=== PATIENT | male | born 1965 | race Caucasian/White ===

== ENCOUNTER 2018-02-23 03:21 | Inpatient (IN) | payer OTHER ==
[2018-02-23] VITALS (13 sets, daily range): BP systolic 105–141; BP diastolic 55–64; PULSE 70–129; RESP 17–22; TEMP 95.9–100.8; O2SAT 86–100
[2018-02-23] MEDS ORDERED: ceFAZolin 2 GM PREMIX 50 ML ONE (03:33)
[2018-02-23] MEDS ORDERED: DIPHTH/TETANUS/ACEL PERTUSSIS (BOOSTER) 0.5 ML VIAL/PFS IM ONE (03:33)
[2018-02-23] MEDS ORDERED: ATROPINE SULFATE 1 MG/ML VIAL ONE (03:37)
[2018-02-23 03:43] LABS: BASOPHIL # 0.1 TH/MM3 (0-0.2); BASOPHIL % 0.6 % (0.0-2.0); EOSINOPHIL # 0.2 TH/MM3 (0-0.4); HEMATOCRIT 45.5 % (39.0-51.0); HEMOGLOBIN 15.3 GM/DL (13.0-17.0); LYMPH % 34.3 % (9.0-44.0); LYMPHOCYTE # 3.5 TH/MM3 (1.0-4.8); MEAN CELL VOLUME 93.1 FL (80.0-100.0); MEAN CORPUSCULAR HEMOGLOBIN 31.3 PG (27.0-34.0); MEAN CORPUSCULAR HGB CONC 33.6 % (32.0-36.0); MEAN PLATELET VOLUME 8.2 FL (7.0-11.0); MONO % 5.4 % (0.0-8.0); MONOCYTE # 0.6 TH/MM3 (0-0.9); NEUT % 57.7 % (16.0-70.0); PLATELET COUNT 216 TH/MM3 (150-450); RED BLOOD COUNT 4.89 MIL/MM3 (4.50-5.90); WHITE BLOOD COUNT 10.3 TH/MM3 (4.0-11.0)
[2018-02-23] MEDS: LACTATED RINGER'S 1000 ML INJ 1,000 ML IV SCH ×3 (03:44→19:44)
[2018-02-23] MEDS ORDERED: CHLORHEXIDINE GLUCONATE 2 % 1 PACK (2 CLOTHS) TOP PRN (03:45)
[2018-02-23] MEDS ORDERED: MAGNESIUM HYDROXIDE SUSP 30 ML CUP PO PRN (03:45)
[2018-02-23] MEDS ORDERED: ONDANSETRON HCL 4 MG/2 ML VIAL IV PUSH PRN (03:45)
[2018-02-23] MEDS ORDERED: NURSING INFORMATION XX SCH (03:45)
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
[2018-02-23 03:52] LABS: PROTHROMBIN TIME - PATIENT 40.6 SEC (9.8-11.6)
[2018-02-23] MEDS ORDERED: IOHEXOL 350 MG/ML 10 ML VIAL (for RAD DIAG) IVCONTRAST ONE (03:55)
[2018-02-23] MEDS: CHLORHEXIDINE GLUCONATE 2 % 1 PACK (2 CLOTHS) TOP SCH (04:00)
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
[2018-02-23 04:33] LABS: TROPONIN I LESS THAN 0.02 NG/ML (0.02-0.05)
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
[2018-02-23] MEDS ORDERED: LACTATED RINGER'S 1000 ML INJ 1,000 ML IV ONE (05:30)
[2018-02-23] MEDS: IBUPROFEN 800 MG TAB PO SCH ×3 (06:00→18:00)
[2018-02-23] MEDS ORDERED: LACTULOSE SYRUP 20 GM/30 ML CUP PO PRN (06:15)
[2018-02-23] MEDS: RESP: ALBUTEROL 2.5 MG/IPRATROPIUM 0.5 MG NEB (SCH) NEB ×4 (07:41→19:46)
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
[2018-02-23] MEDS: POLYETHYLENE GLYCOL 17 GM PKG PO SCH (09:00)
[2018-02-23] MEDS ORDERED: DOCUSATE SODIUM 100 MG CAP PO SCH (09:00)
[2018-02-23] MEDS: FAMOTIDINE 20 MG/2 ML VIAL IV PUSH SCH ×2 (10:02→20:48)
[2018-02-23] MEDS: DOCUSATE SODIUM 50 MG/SENNA 8.6 MG TAB PO SCH ×2 (10:03→20:48)
[2018-02-23] MEDS: BACITRACIN TOP OINT 15 GM TUBE TOP SCH ×2 (10:05→20:49)
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
[2018-02-23] MEDS ORDERED: hydrALAZINE HCL 20 MG/ML VIAL IV PRN (19:30)
[2018-02-23] MEDS ORDERED: ACETAMINOPHEN 325 MG TAB PO PRN (19:30)
[2018-02-24] VITALS (14 sets, daily range): BP systolic 115–153; BP diastolic 63–87; PULSE 98–121; RESP 14–25; TEMP 98.4–100.6; O2SAT 93–98
[2018-02-24] MEDS: LACTATED RINGER'S 1000 ML INJ 1,000 ML IV SCH (03:44)
[2018-02-24] MEDS: CHLORHEXIDINE GLUCONATE 2 % 1 PACK (2 CLOTHS) TOP SCH (04:00)
[2018-02-24 04:40] LABS: AUTOMATED NEUTROPHIL # 9.5 TH/MM3 (1.8-7.7); BASOPHIL % 0.2 % (0.0-2.0); HEMATOCRIT 47.9 % (39.0-51.0); HEMOGLOBIN 16.1 GM/DL (13.0-17.0); LYMPH % 5.1 % (9.0-44.0); LYMPHOCYTE # 0.6 TH/MM3 (1.0-4.8); MEAN CELL VOLUME 91.5 FL (80.0-100.0); MEAN CORPUSCULAR HEMOGLOBIN 30.7 PG (27.0-34.0); MEAN CORPUSCULAR HGB CONC 33.6 % (32.0-36.0); MONOCYTE # 1.2 TH/MM3 (0-0.9); NEUT % 83.7 % (16.0-70.0); PLATELET COUNT 173 TH/MM3 (150-450); RED BLOOD COUNT 5.24 MIL/MM3 (4.50-5.90); RED CELL DISTRIBUTION WIDTH 15.1 % (11.6-17.2); WHITE BLOOD COUNT 11.3 TH/MM3 (4.0-11.0)
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
[2018-02-24 05:10] LABS: BICARBONATE 18.3 MEQ/L (21.0-32.0); CALCIUM 8.3 MG/DL (8.5-10.1); CREATININE 1.31 MG/DL (0.60-1.30)
[2018-02-24] MEDS: IBUPROFEN 800 MG TAB PO SCH ×4 (06:00→17:37)
[2018-02-24] MEDS ORDERED: ONDANSETRON ODT 4 MG TAB PO PRN (07:30)
[2018-02-24] MEDS: RESP: ALBUTEROL 2.5 MG/IPRATROPIUM 0.5 MG NEB (SCH) NEB ×4 (07:30→20:00)
[2018-02-24] MEDS: METHOCARBAMOL 500 MG TAB PO SCH ×2 (08:03→17:37)
[2018-02-24] MEDS: SODIUM CHLORIDE 0.9% FLUSH 10 ML FLUSH IV FLUSH PRN (08:03)
[2018-02-24] MEDS: DOCUSATE SODIUM 50 MG/SENNA 8.6 MG TAB PO SCH ×2 (08:03→20:38)
[2018-02-24] MEDS: LIDOCAINE HCL 5% PATCH T-DERMAL SCH (08:04)
[2018-02-24] MEDS: BACITRACIN TOP OINT 15 GM TUBE TOP SCH ×2 (08:04→20:38)
[2018-02-24 08:17] LABS: BANDS 21 % (0-6); LYMPHOCYTES 7 % (9-44); MONOCYTES 9 % (0-8); NEUTROPHIL # MANUAL DIFF 9.5 TH/MM3 (1.8-7.7); POLYS (SEG NEUTROPHILS) 63 % (16-70)
[2018-02-24] MEDS: MORPHINE SULFATE 4 MG/ML INJ IV PUSH PRN ×2 (08:28→15:40)
[2018-02-24] MEDS ORDERED: LACTATED RINGER'S 1000 ML INJ 1,000 ML IV ONE ×2 (09:15→16:00)
--- NOTE | 2018-02-24 09:57 | PD.ORT.PN ---
Subjective Subjective Remarks Patient resting in bed with continued complaints of generalized soreness. Patient states the left shoulder is more bothersome than is right today. Patient states mild right shoulder/clavicle pain. Left shoulder pain is sharp with movement. Objective Vitals Vital Signs Date Time Temp Pulse Resp B/P (MAP) Pulse Ox O2 Delivery O2 Flow Rate FiO2 02/24/18 07:34 97 Nasal Cannula 3.00 02/24/18 06:39 17 02/24/18 06:00 108 02/24/18 04:00 111 02/24/18 04:00 99.8 111 18 126/71 (89) 98 02/24/18 02:00 110 02/24/18 00:00 115 02/24/18 00:00 99.9 115 18 115/70 (85) 95 02/23/18 22:00 117 02/23/18 20:00 129 02/23/18 20:00 98.6 129 17 134/64 (87) 97 02/23/18 19:46 98 Nasal Cannula 2.00 02/23/18 19:00 Nasal Cannula 2.00 02/23/18 18:00 110 02/23/18 16:00 111 02/23/18 16:00 100.8 111 18 141/63 (89) 100 02/23/18 14:00 100 02/23/18 12:00 99.9 78 22 133/63 (86) 100 02/23/18 12:00 78 02/23/18 10:00 75 I/O 02/23/18 02/23/18 02/23/18 02/24/18 02/24/18 02/24/18 06:59 14:59 22:59 06:59 14:59 22:59 Intake Total 1240 ml 1250 ml Output Total 350 ml 475 ml 350 ml Balance -350 ml 765 ml 900 ml Intake Oral 240 ml 250 ml IV Total 1000 ml 1000 ml Output Urine Total 350 ml 475 ml 350 ml # Bowel Movements 0 Result Diagram: 02/24/18 0249 02/24/18 0249 Imaging Last 24 hours Impressions Chest X-Ray 02/24/18 0000 Addendum Impressions: CONCLUSION: Bibasilar areas of suspected contusion with possible left pleural effusion. Multiple bilateral rib fractures. Head CT 02/23/18 1600 Signed Impressions: CONCLUSION: 1. No acute intracranial abnormality. Objective Remarks Multiple abrasions covering the upper extremities, lower extremities, and torso. Patient has mild swelling and tenderness to palpation of the right shoulder and clavicle. Patient has moderate tenderness to palpation over the superior and anterior aspects of the left shoulder. Patient had moderate to severe pain with PROM of the left shoulder. + NVI bilateral upper extremities. Compartments are soft. Patient has limited AROM of the left hand from prior/ chronic nerve damage. Assessment & Plan Assessment and Plan Right distal clavicle fracture with mild displacement and comminution Multiple bilateral rib fractures Left shoulder pain, r/o fracture 1. Sling to the right upper extremity for comfort and support 2. Ice to the bilateral shoulders PRN 3. AROM bilateral shoulders as tolerated 4. XR ordered for left shoulder to r/o fracture, will f/u 5. Stable fracture of right clavicle, not recommending surgical management at this time. Jay Bell Feb 24, 2018 09:57
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
[2018-02-24] MEDS: POLYETHYLENE GLYCOL 17 GM PKG PO SCH (12:59)
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
--- NOTE | 2018-02-24 15:42 | EKG ---
Date Performed: 02/24/2018 Time Performed: 08:02:48 PTAGE: 52 years EKG: Sinus tachycardia Possible left atrial abnormality Rightward axis Inferior T wave changes a re nonspecific Borderline ECG NO PREVIOUS TRACING DOCTOR: Juan Broyd Interpretating Date/Time 02/24/2018 15:41:44
[2018-02-24] MEDS: SODIUM CHLOR 0.9% 1000 ML INJ 1,000 ML IV SCH (17:37)
[2018-02-24] MEDS ORDERED: LORazepam 1 MG TAB PO ONE (18:30)
[2018-02-24 18:49] LABS: BACTERIA, URINE FEW /hpf; BILIRUBIN, URINE NEG (NEG); BLOOD, URINE LARGE (NEG); GLUCOSE,URINE NEG (NEG); HYALINE CAST, URINE 10 /lpf (RARE); KETONE, URINE TRACE mg/dL (NEG); MUCUS URINE FEW /lpf (OCC); NITRITE,URINE NEG (NEG); RENAL EPITHELIAL CELLS <1 /hpf; SQUAMOUS EPITHELIAL CELL URINE 2 /hpf (0-5); TRANSITIONAL EPI CELLS, URINE <1 /hpf; URINE COLOR YELLOW (YELLW/STRAW); URINE LEUKOCYTE ESTERASE SMALL (NEG)
[2018-02-24] MEDS: REMOVE OLD LIDOCAINE PATCH T-DERMAL SCH (21:00)
[2018-02-25] VITALS (15 sets, daily range): BP systolic 117–181; BP diastolic 57–95; PULSE 90–118; RESP 12–24; TEMP 97.8–99.3; O2SAT 93–100
[2018-02-25] MEDS: METHOCARBAMOL 500 MG TAB PO SCH ×4 (00:44→23:16)
[2018-02-25] MEDS: IBUPROFEN 800 MG TAB PO SCH ×5 (00:45→23:16)
[2018-02-25] MEDS: CHLORHEXIDINE GLUCONATE 2 % 1 PACK (2 CLOTHS) TOP SCH (02:33)
[2018-02-25] MEDS: SODIUM CHLOR 0.9% 1000 ML INJ 1,000 ML IV SCH ×3 (02:51→23:10)
[2018-02-25 05:19] LABS: PROTHROMBIN TIME - PATIENT 67.1 SEC (9.8-11.6)
[2018-02-25 05:24] LABS: INTERNATIONAL NORMALIZED RATIO 6.7 RATIO
[2018-02-25 05:44] LABS: TROPONIN I 0.26 NG/ML (0.02-0.05)
[2018-02-25] MEDS: RESP: ALBUTEROL 2.5 MG/IPRATROPIUM 0.5 MG NEB (SCH) NEB ×4 (08:31→20:16)
[2018-02-25] MEDS: POLYETHYLENE GLYCOL 17 GM PKG PO SCH (09:00)
[2018-02-25] MEDS: DOCUSATE SODIUM 50 MG/SENNA 8.6 MG TAB PO SCH ×2 (09:17→21:29)
[2018-02-25] MEDS: LIDOCAINE HCL 5% PATCH T-DERMAL SCH (09:21)
[2018-02-25] MEDS: BACITRACIN TOP OINT 15 GM TUBE TOP SCH ×2 (09:21→21:37)
[2018-02-25] MEDS: MORPHINE SULFATE 4 MG/ML INJ IV PUSH PRN ×2 (09:30→16:23)
--- NOTE | 2018-02-25 12:59 | PD.ORT.PN ---
Subjective Subjective Remarks Patient OOB in chair c/o generalized soreness/pain. Patient is currently wearing a sling to the left upper extremity as this is more painful than his previously diagnosed right clavicle fracture. Objective Vitals Vital Signs Date Time Temp Pulse Resp B/P (MAP) Pulse Ox O2 Delivery O2 Flow Rate FiO2 02/25/18 10:00 97 02/25/18 08:39 100 Nasal Cannula 3.00 02/25/18 08:00 90 02/25/18 08:00 98.5 90 24 117/57 (77) 93 02/25/18 07:00 99 Nasal Cannula 3.00 02/25/18 06:00 90 02/25/18 04:00 98.5 105 14 131/63 (85) 97 02/25/18 04:00 105 02/25/18 02:00 102 02/25/18 00:00 99.3 106 12 126/59 (81) 96 02/25/18 00:00 106 02/24/18 22:00 110 02/24/18 20:43 93 Nasal Cannula 2.00 02/24/18 20:00 98 02/24/18 20:00 99.2 98 14 133/63 (86) 96 02/24/18 19:00 90 Nasal Cannula 3.00 02/24/18 18:00 104 02/24/18 16:00 99.7 108 24 153/70 (97) 96 02/24/18 16:00 108 02/24/18 14:00 108 I/O 02/24/18 02/24/18 02/24/18 02/25/18 02/25/18 02/25/18 07:00 15:00 23:00 07:00 15:00 23:00 Intake Total 1250 ml 1000 ml 2480 ml 5907 ml Output Total 350 ml 275 ml 350 ml Balance 900 ml 1000 ml 2205 ml 5557 ml Intake Oral 250 ml 480 ml 600 ml IV Total 1000 ml 1000 ml 2000 ml 5307 ml Output Urine Total 350 ml 275 ml 350 ml # Bowel Movements 0 0 0 Result Diagram: 02/24/18 0249 02/24/189 Other Results Laboratory Tests Test 02/25/18 04:56 Prothromb Time International Ratio 6.7 RATIO Prothrombin Time 67.1 SEC (9.8-11.6) Imaging Last 48 hours Impressions Shoulder X-Ray 02/24/18 0000 Signed Impressions: CONCLUSION: Fracture of the distal clavicle, nondisplaced just proximal to the AC joint. Mu ltiple minimally displaced left-sided rib fractures with adjacent pulmonary con tusion. Chest X-Ray 02/24/18 0000 Addendum Impressions: CONCLUSION: Bibasilar areas of suspected contusion with possible left pleural effusion. Multiple bilateral rib fractures. Head CT 02/23/18 1600 Signed Impressions: CONCLUSION: 1. No acute intracranial abnormality. Last 24 hours Impressions Chest X-Ray 02/24/18 0000 Addendum Impressions: CONCLUSION: Bibasilar areas of suspected contusion with possible left pleural effusion. Multiple bilateral rib fractures. Head CT 02/23/18 1600 Signed Impressions: CONCLUSION: 1. No acute intracranial abnormality. I have reviewed the images of the left shoulder and agree with the radiologist' s interpretation. Objective Remarks Multiple abrasions covering the upper extremities, lower extremities, and torso. Patient has mild swelling and tenderness to palpation of the right shoulder and clavicle. Patient has moderate tenderness to palpation over the superior and anterior aspects of the left shoulder. Patient had moderate to severe pain with PROM/AROM of the left shoulder. + NVI bilateral upper extremities. Compartments are soft. 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 Sling to the LUE Assessment & Plan Ortho Post Op Day #: 2 Problem List: Assessment and Plan Right distal clavicle fracture with mild displacement and comminution Multiple bilateral rib fractures Left shoulder nondisplaced distal clavicle fracture 1. Sling to the bilateral upper extremities for comfort and support. Sling order placed for RUE as patient is currently wearing sling on LUE 2. Ice to the bilateral shoulders PRN 3. AROM bilateral shoulders as tolerated. Limit WB 4. XR of left shoulder confirms distal clavicle fracture. Non operative management of the clavicle fracture. 5. Stable fracture of right clavicle, not recommending surgical management at this time. 6. Stable for discharge per ortho. F/U in the office in 1-2 weeks for close f/ u of the bilateral clavicle fractures. Ortho signing off Jay Bell Feb 25, 2018 12:59
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
[2018-02-25] MEDS: SODIUM CHLORIDE 0.9% FLUSH 10 ML FLUSH IV FLUSH PRN (21:28)
[2018-02-25] MEDS: REMOVE OLD LIDOCAINE PATCH T-DERMAL SCH (21:36)
[2018-02-26] VITALS (8 sets, daily range): BP systolic 132–167; BP diastolic 67–78; PULSE 98–116; RESP 18–20; TEMP 97.1–98.2; O2SAT 92–100
[2018-02-26] MEDS: CHLORHEXIDINE GLUCONATE 2 % 1 PACK (2 CLOTHS) TOP SCH (04:00)
[2018-02-26 05:31] LABS: INTERNATIONAL NORMALIZED RATIO 2.9 RATIO; PROTHROMBIN TIME - PATIENT 29.4 SEC (9.8-11.6)
[2018-02-26 05:35] LABS: AUTOMATED NEUTROPHIL # 6.5 TH/MM3 (1.8-7.7); BASOPHIL % 0.4 % (0.0-2.0); EOSINOPHIL # 0.1 TH/MM3 (0-0.4); EOSINOPHIL % 1.6 % (0.0-4.0); HEMOGLOBIN 10.6 GM/DL (13.0-17.0); LYMPH % 9.7 % (9.0-44.0); LYMPHOCYTE # 0.8 TH/MM3 (1.0-4.8); MEAN CELL VOLUME 92.2 FL (80.0-100.0); MEAN CORPUSCULAR HEMOGLOBIN 31.4 PG (27.0-34.0); MEAN PLATELET VOLUME 8.8 FL (7.0-11.0); MONO % 6.3 % (0.0-8.0); MONOCYTE # 0.5 TH/MM3 (0-0.9); PLATELET COUNT 154 TH/MM3 (150-450); RED BLOOD COUNT 3.36 MIL/MM3 (4.50-5.90); RED CELL DISTRIBUTION WIDTH 14.9 % (11.6-17.2); WHITE BLOOD COUNT 7.9 TH/MM3 (4.0-11.0)
[2018-02-26 05:55] LABS: CALCIUM 8.2 MG/DL (8.5-10.1); CREATININE 1.31 MG/DL (0.60-1.30)
[2018-02-26] MEDS: SODIUM CHLOR 0.9% 1000 ML INJ 1,000 ML IV SCH ×3 (06:20→23:57)
[2018-02-26] MEDS: IBUPROFEN 800 MG TAB PO SCH ×4 (06:21→23:57)
[2018-02-26] MEDS: RESP: ALBUTEROL 2.5 MG/IPRATROPIUM 0.5 MG NEB (SCH) NEB ×4 (07:32→20:00)
--- NOTE | 2018-02-26 08:03 | RADRPT ---
EXAM DATE: 02/26/2018 7:58 AM EDT AGE/SEX: 52 years / Male INDICATIONS: Upper and left sided chest pain. CLINICAL DATA: This is the patient's subsequent encounter. Patient reports that signs and symptoms h ave been present for 4 - 6 days and indicates a pain score of 10/10. MEDICAL/SURGICAL HISTORY: None. None. COMPARISON: [facility] [place], CHEST SINGLE AP, 02/24/2018. . FINDINGS: Bilateral rib fractures are again noted with right greater than left basilar consolidation and small effusions. The right base consolidation is worse in the interim. I don't see a pneumothorax. Heart size stable, within normal limits. CONCLUSION: 1. Bibasilar consolidation and small effusions, worse on the right and not significantly changed on the left. 2. Bilateral rib fractures are again noted. No evidence of pneumothorax. Electronically signed by: Coleman Fabian MD 02/26/2018 8:01 AM EDT
[2018-02-26] MEDS: METHOCARBAMOL 500 MG TAB PO SCH ×3 (08:08→23:57)
[2018-02-26] MEDS: DOCUSATE SODIUM 50 MG/SENNA 8.6 MG TAB PO SCH ×2 (08:08→21:00)
[2018-02-26] MEDS: POLYETHYLENE GLYCOL 17 GM PKG PO SCH (08:08)
[2018-02-26] MEDS: LIDOCAINE HCL 5% PATCH T-DERMAL SCH (08:09)
[2018-02-26] MEDS: BACITRACIN TOP OINT 15 GM TUBE TOP SCH ×2 (08:09→22:20)
[2018-02-26] MEDS ORDERED: LACTULOSE SYRUP 20 GM/30 ML CUP PO ONE (12:30)
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
[2018-02-26] MEDS: REMOVE OLD LIDOCAINE PATCH T-DERMAL SCH (22:19)
[2018-02-27] VITALS (7 sets, daily range): BP systolic 130–184; BP diastolic 67–85; PULSE 99–111; RESP 16–18; TEMP 97.7–98.5; O2SAT 92–98
[2018-02-27] MEDS ORDERED: ENOXAPARIN SODIUM 100 MG/ML SYRINGE SQ SCH (03:00)
[2018-02-27] MEDS: CHLORHEXIDINE GLUCONATE 2 % 1 PACK (2 CLOTHS) TOP SCH (04:00)
[2018-02-27 06:08] LABS: HEMATOCRIT 30.2 % (39.0-51.0); HEMOGLOBIN 10.3 GM/DL (13.0-17.0)
[2018-02-27] MEDS: IBUPROFEN 800 MG TAB PO SCH ×4 (06:15→23:15)
[2018-02-27 06:37] LABS: BICARBONATE 20.6 MEQ/L (21.0-32.0); CREATININE 1.07 MG/DL (0.60-1.30)
[2018-02-27] MEDS ORDERED: PERI PO (06:55)
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
--- NOTE | 2018-02-27 07:32 | RADRPT ---
EXAM DATE: 02/27/2018 7:27 AM EDT AGE/SEX: 52 years / Male INDICATIONS: Short of breath. CLINICAL DATA: This is the patient's subsequent encounter. Patient reports that signs and symptoms h ave been present for 4 - 6 days and indicates a pain score of Nonresponsive. MEDICAL/SURGICAL HISTORY: None. None. [place] [facility] [place]. . FINDINGS: Parenchymal consolidation and small effusions again seen in both bases, slightly improved on the righ t and not significantly changed on the left. Bilateral rib fractures are again noted. No perceptible pneumothorax on either side. Heart size stable, within normal limits. CONCLUSION: 1. Slightly improved consolidation and small effusion at the right base. 2. No significant change consolidation and small effusion at the left base. 3. Bilateral rib fractures are again noted. Also a fracture distally of the right clavicle. No pneum othorax. Electronically signed by: Coleman Fabian MD 02/27/2018 7:30 AM EDT
[2018-02-27] MEDS: POLYETHYLENE GLYCOL 17 GM PKG PO SCH (08:29)
[2018-02-27] MEDS: METHOCARBAMOL 500 MG TAB PO SCH ×2 (08:29→15:39)
[2018-02-27] MEDS: DOCUSATE SODIUM 50 MG/SENNA 8.6 MG TAB PO SCH ×2 (08:30→21:00)
[2018-02-27] MEDS: LIDOCAINE HCL 5% PATCH T-DERMAL SCH (08:30)
[2018-02-27] MEDS: BACITRACIN TOP OINT 15 GM TUBE TOP SCH ×2 (08:30→21:00)
[2018-02-27 10:52] LABS: INTERNATIONAL NORMALIZED RATIO 1.7 RATIO; PROTHROMBIN TIME - PATIENT 17.6 SEC (9.8-11.6)
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
[2018-02-27] MEDS: SODIUM CHLOR 0.9% 1000 ML INJ 1,000 ML IV SCH (12:14)
[2018-02-27] MEDS ORDERED: BISACODYL EC 5 MG TABEC PO ONE (13:15)
[2018-02-27] MEDS ORDERED: BISACODYL 10 MG SUPP RECTAL ONE (13:15)
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
[2018-02-27] MEDS ORDERED: ENOXAPARIN SODIUM 100 MG/ML SYRINGE SQ ONE (15:15)
[2018-02-27] MEDS ORDERED: WARF-23 PO (16:45)
[2018-02-27] MEDS: ENALAPRILAT 1.25 MG/ML VIAL IV PUSH PRN (17:09)
[2018-02-27] MEDS: MAGNESIUM HYDROXIDE SUSP 30 ML CUP PO SCH (21:00)
[2018-02-27] MEDS: FAMOTIDINE 20 MG TAB PO SCH (23:02)
[2018-02-27] MEDS: REMOVE OLD LIDOCAINE PATCH T-DERMAL SCH (23:04)
[2018-02-28] VITALS: BP 164/70; PULSE 108; RESP 18; TEMP 98.8; O2SAT 96
[2018-02-28] MEDS: ENOXAPARIN SODIUM 100 MG/ML SYRINGE SQ SCH ×2 (02:22→17:55)
[2018-02-28] MEDS: MORPHINE SULFATE 4 MG/ML INJ IV PUSH PRN (02:23)
[2018-02-28 04:00] VITALS: BP 170/74; PULSE 97; RESP 18; TEMP 97.1; O2SAT 98
[2018-02-28 05:25] LABS: HEMATOCRIT 29.4 % (39.0-51.0); MEAN CORPUSCULAR HEMOGLOBIN 31.3 PG (27.0-34.0); MEAN PLATELET VOLUME 7.4 FL (7.0-11.0); PLATELET COUNT 234 TH/MM3 (150-450); RED BLOOD COUNT 3.19 MIL/MM3 (4.50-5.90); RED CELL DISTRIBUTION WIDTH 14.5 % (11.6-17.2); WHITE BLOOD COUNT 7.5 TH/MM3 (4.0-11.0)
[2018-02-28] MEDS: IBUPROFEN 800 MG TAB PO SCH ×4 (05:26→19:32)
[2018-02-28 05:33] LABS: INTERNATIONAL NORMALIZED RATIO 1.6 RATIO; PROTHROMBIN TIME - PATIENT 15.9 SEC (9.8-11.6)
[2018-02-28 08:05] VITALS: BP 146/78; PULSE 100; RESP 18; TEMP 97.5; O2SAT 97
[2018-02-28] MEDS: METHOCARBAMOL 500 MG TAB PO SCH ×3 (08:39→15:54)
[2018-02-28] MEDS: FAMOTIDINE 20 MG TAB PO SCH ×2 (08:39→22:22)
[2018-02-28] MEDS: MAGNESIUM HYDROXIDE SUSP 30 ML CUP PO SCH ×2 (08:40→21:00)
[2018-02-28] MEDS: POLYETHYLENE GLYCOL 17 GM PKG PO SCH (08:40)
[2018-02-28] MEDS: DOCUSATE SODIUM 50 MG/SENNA 8.6 MG TAB PO SCH ×2 (08:40→21:00)
[2018-02-28] MEDS: BACITRACIN TOP OINT 15 GM TUBE TOP SCH ×2 (08:41→22:26)
[2018-02-28] MEDS: LIDOCAINE HCL 5% PATCH T-DERMAL SCH (08:41)
[2018-02-28 12:00] VITALS: BP 176/74; PULSE 99; RESP 18; TEMP 97.8; O2SAT 96
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
[2018-02-28] MEDS ORDERED: HEPARIN-NS/PF INJ 1,000 ML ONE (12:13)
[2018-02-28] MEDS ORDERED: MIDAZOLAM HCL 2 MG/2 ML VIAL ONE (12:14)
[2018-02-28] MEDS ORDERED: POVIDONE IODINE 5% (ANTISEPSIS KIT) 4 APPLICATIONS EACH NARE PRN (12:45)
[2018-02-28] MEDS ORDERED: CHLORHEXIDINE GLUCONATE 2 % 1 PACK (2 CLOTHS) TOPICAL PRN (12:45)
[2018-02-28] MEDS ORDERED: LACTATED RINGER'S 1000 ML IV PRN (12:45)
--- NOTE | 2018-02-28 13:42 | MR ---
cc: Raamna Laguerre MD DATE: 02/28/2018 PROCEDURE PERFORMED: Left heart catheterization, left ventriculography, coronary angiography. INDICATIONS: Non-STEMI, chest pain, multiple cardiac risk factors. DESCRIPTION OF PROCEDURE: The patient was brought to the cardiac catheterization laboratory, prepped and draped in the usual sterile fashion, and 10 mL of 1% lidocaine was used to locally anesthetize the right common femoral artery. A 4-Korean sheath placed in the right common femoral artery, 4-Korean JR4 and JL4 catheters were used to perform coronary angiography and left ventriculography. FINDINGS: LV pressure is 125/12-15. Ejection fraction is . There are no focal segmental wall motion abnormalities. The right coronary artery is dominant. There is mild plaque in the proximal segment up to 20-30% angiographically, cannot rule out catheter-induced spasm also. Left main coronary artery has no significant disease angiographically. Left circumflex vessel has no significant disease angiographically. The first obtuse marginal vessel, a medium size vessel, reference vessel diameter 2.25 mm. No significant disease angiographically. LAD is transapical. It has no significant disease angiographically. First diagonal artery is a medium size vessel, reference vessel diameter 2.25 mm. No significant disease angiographically. CONCLUSION: 1. Angiographically, mild 1-vessel coronary artery disease as detailed above and a right dominant system. 2. Hyperdynamic left ventricular systolic function, ejection fraction . 3. Suspect troponin elevation due to cardiac contusion. 4. Will resume the patient's home dose of Coumadin 5 mg daily with Lovenox bridge as the patient has a history of deep vein thrombosis and protein C deficiency. 5. Recommend check lipids, LFTs, CK guidelines due to the presence of 20-30% proximal right coronary artery stenosis as detailed above. Ramana Laguerre MD AWTracy/SB , 01:12 PM , 01:41 PM
--- NOTE | 2018-02-28 13:44 | CATHPROC ---
[employer] HIS Report Study Information Study Number Admission Scheduled Start Study Start [id number] Feb 23 2018 3:46AM 02/28/2018 Feb 28 2018 11:59AM [place] Service Cardiac Catheterization Admit Source Facility Department Emergency department [facility] - Senior Nuclear Medicine Technologist Physician and Clinical Staff Initial Ramana Rosario Finish Grinder Basilio Noonan RN Finish Grinder Nel Munroe,RN Recorder Elvira Adrian,RT(R) Scrub Nel SantanaRT(R) Procedures Performed Procedure Location (Site) Vessel Name Coronary Angiograms LCA Left Coronary Coronary Angiograms RCA Right Coronary L Heart Cath LV Gram-hand inj. LV LV Ventricle Equipment Time Cocoa Press Operator Description Size Mfg Part Number Used/Scraped TRANSDUCER, TRUWAVE [id number] 11:59 AYOUB ASHTON * Used W/STOCKCOCK *[id number] *[id number] *[id number] 11:59 [employer] BLANKET,WARM AIR CCL * Used *[id number] 11:59 [employer] PACK, CCL CUSTOM * Used *[id number] 11:[address] PACER PEN, SKIN DUAL W/ RULER * Used *[id number] 11:59 Athletic Standard WIRE, 3MMJ .035 180CM 180CM Used *[id number] 11:59 NAMIC MANIFOLD, 4 PORT * Used *[id number] 11:59 [employer] OMNIPAQUE, 350 MG, 150ML 150ML [id number] Used [id number] 11:59 TERUMO MEDICAL SHEATH, FR4 TERUMO (10CM) FR 4 Used *[id number] History: Current Medications Medication Dosage/Unit Route Frequency Last Date/Time Taken LOVENOX Coumadin History: Allergies Allergy Reaction No Known Allergies History: Risk Factors Family History of Hypertension Dyslipidemia Previous LA Previous Heart Failure Premature CAD No No No No No Prior Valve Prior PCI Prior CABG Surgery No No No Cerebrovascular Peripheral Artery Chronic Lung On Dialysis Diabetes Disease Disease Disease No No No No No Labs Hgb (g/dl) Hct (%) WBC (l/cumm) Platelets (thousands) 11.60-17.00 35.00-51.00 4.00-11.00 150.00-450.00 10.0 29.4 7.5 234 Glucose (mg/dl) BUN (mg/dl) Creatinine (mg/dl) BUN:Creatinine (1:x) 74.00-106.00 7.00-18.00 0.50-1.30 10.00-20.00 95 31 1.0 31 Na (meq/l) K (meq/l) 136.00-145.00 3.50-5.10 138 3.9 INR (PTT:PT) 0.90-1.10 1.6 Troponin I (ng/ml) CPK (u/l) CPK-MB (ng/ML) 0.02-0.05 26.00-308.00 0.50-3.60 0.26 945 5.5 Medication Medication Total Dose (Bolus/Oral) Medication Total Dosage/Unit 1% XYLOCAINE 20 mL Medications (Bolus/Oral) Medication Time Given Dosage/Unit Administered By Reason 1% XYLOCAINE 02/28/2018 12:58:33 PM 20 mL Ramana Laguerre 20 mL 1% XYLOCAINE given in lab by Ramana Laguerre in Right Groin via Subcutaneous. Medication (Drip) Medication Time Given Dosage/Unit Concentration/Unit Diluent (ml) Solution IV Solutions 02/28/2018 12:13:50 PM 50 mL (IV) NaCl .9 IV Solutions given in lab by Nel Munroe RN in Right Antecubital via Peripheral IV. Pump/Drip Pete w using NaCl .9. Initial Case Assessment Cardiovascular NIBP Chest Pain 161/84 0 Edema Present Skin color Skin Mild Normal Warm Dry Circulatory - Right Pulses Dorsalis Pedis Femoral d 1 Scale (0,1,2,3,4,d) Circulatory - Left Pulses Dorsalis Pedis Femoral d 1 Scale (0,1,2,3,4,d) Neurological State Oriented to time-place- Alert Moves all extremities person Respiration - General SpO2 (%) O2 (lpm) 97 2 Chronological Log Time Study Chronological Log 12:12:59 Patient arrived via Bed. 12:13:01 Patient Name, D.O.B, / Armband Verified By R.N. 12:13:01 Consent signed by the physician and the patient and verified by the Senior Nuclear Medicine Technologist staff. 12:13:02 Pre-op and post- op instructions given; patient acknowledges understanding of instruction s. 12:13:03 Verbal Stimulation=2 Physical Stimulation=2 Airway=2 Respiration=2 TOTAL=8. (0=absent, 1= limited, 2=present) 12:13:05 Presedation assessment performed by Senior Nuclear Medicine Technologist RN. 12:13:19 Patient has been NPO for Less than 6Hrs. 12:13:19 Skin Breakdown- [place] [facility] [place] 12:13:45 Patient Warmer Placed on the Table. 12:13:47 Donnell Prominences Protected A # 18 IV was noted in the Forearm (left). Grade = 0 12:13:49 Pt arrived with this IV which was removed due to it leaking. 12:13:50 IV Solutions given in lab by Nel Munroe, RN in Right Antecubital via Peripheral IV. Pum p/Drip Flow using NaCl .9. 12:13:51 History and physical on the chart or being dictated. Assessment: Initial Case, UDNW=013/84 mmhg, Chest Pain=0, Edema=Mild, Color=Normal, Skin = Warm , Dry Right Pulses: Sami Ped=d, Femoral=1 12:13:52 Left Pulses: Sami Ped=d, Femoral=1 Neurological: State=Alert, Ox3, WRIGHT Respiration: SpO2=97 %, O2=2 lpm A # 22 IV was noted in the Antecubital (right). Grade = 0 12:40:09 Placed in rn cardiac cath Vitals capture started with the following parameters, Patient=Adult, Interval=5 min, Initial Pr uftkjy=939 mmHg, 12:44:55 Deflation Rate=5 mmHg, Cuff placed on Left Leg 12:45:10 Bilateral groins prepped with 2% chlorhexidine, and draped after a 3 minute waiting time. 12:45:33 BL=881 bpm, RDLD=090/84 mmhg, SpO2=97.0 %, Resp=17 B/min 12:47:18 MD paged 12:47:23 MD responded 12:47:46 Reference ECG taken 12:50:36 LB=768 bpm, HIST=834/86 mmhg, SpO2=97.0 %, Resp=28 B/min 12:50:55 Pressure channel 1 zeroed. Time Out. Correct patient, correct procedure, correct physician, labs, allergies, and equipment verified with rn cardiac cath 12:54:56 team present. Fire risk assesment completed (see hard stop sheet for coding). Time Out Conc urred by MD and individual staff in procedure. 12:55:36 UH=498 bpm, WTFD=812/85 mmhg, SpO2=97.0 %, Resp=24 B/min 12:56:50 Case Start 12:58:33 20 mL 1% XYLOCAINE given in lab by Ramana Laguerre in Right Groin via Subcutaneous. 13:00:18 Access site was Right Femoral Artery. 13:00:25 A SHEATH, FR4 TERUMO (10CM) FR 4 was advanced into the Fem Art (right) using the Percut[place]o us technique. 13:00:35 HX=432 bpm, JHNP=791/90 mmhg, SpO2=96.0 %, Resp=24 B/min A JR 4.0 INFINITI CATHETER FR 4 was advanced over a wire. OMNIPAQUE, 350 MG, 150ML 150ML was us ed for 13:00:48 injections. Recorded Pressure: LV, KY=149, Condition=Condition 1 13:01:44 (Left Ventricle) LV 134/21/18 13:02:04 The LV was manually injected with 8 cc's and visualized. OMNIPAQUE, 350 MG, 150ML 150ML use d. 13:02:30 The RCA was injected and visualized at various angles. OMNIPAQUE, 350 MG, 150ML 150ML used . 13:02:55 Catheter was removed A JL 4.0 INFINITI CATHETER FR 4 was advanced over a wire. OMNIPAQUE, 350 MG, 150ML 150ML was us ed for 13:03:28 injections. Recorded Pressure: Ao, CZ=124, Condition=Condition 1 13:03:44 (Aorta) Ao 122/80/101 13:04:08 The LCA was injected and visualized at various angles. OMNIPAQUE, 350 MG, 150ML 150ML used . 13:04:45 Catheter was removed 13:04:57 Case End (Physician broke scrub) 13:05:34 SD=356 bpm, MGGR=751/89 mmhg, SpO2=96.0 %, Resp=23 B/min 13:09:49 Sheath removed; pressure applied to access site. 13:10:35 DD=959 bpm, LTLX=437/76 mmhg, SpO2=96.0 %, Resp=23 B/min 13:15:36 HB=344 bpm, FSYL=442/86 mmhg, SpO2=96.0 %, Resp=23 B/min 13:18:23 Sterile dressing applied to site 13:18:24 No case complications noted. 13:18:25 Cine recording checked. 13:18:27 Holding Area notified. 13:18:35 A Left Heart Cath was performed. 13:20:37 KR=826 bpm, PPOZ=701/89 mmhg, SpO2=97.0 %, Resp=25 B/min 13:25:38 WB=481 bpm, KSZF=471/81 mmhg, SpO2=96.0 %, Resp=21 B/min 13:30:37 CA=040 bpm, ITWT=900/86 mmhg, SpO2=94.0 %, Resp=27 B/min 13:35:25 Vitals capture stopped. 13:35:[facility] - Cont[facility] Media Used In Study Contrast Total Opened (mL) Total Used (mL) Total Wasted (mL) Omnipaque 40 40 0 End Study - Maximum Contrast Load Max Contrast Load (mL) 545.9 End Study - Radiation Exposure Fluoro Time (minutes) 1.2 End Study - Sheaths Sheaths Pulled By Sheath Hold Time (min) Nel Santana 20 End Study - Patient Disposition Complications Transferred To Interventional Outcome No Telemetry Bed No attempt made
[2018-02-28] MEDS ORDERED: SODIUM CHLORIDE 0.9% FLUSH 10 ML FLUSH IV FLUSH PRN (13:45)
[2018-02-28] MEDS ORDERED: MISC INFORMATION XX ONE (13:45)
[2018-02-28] MEDS ORDERED: BACITRACIN OINT 0.9 GM PKT TOP ONE (13:45)
[2018-02-28] MEDS ORDERED: WARFARIN SOD 5 MG TAB PO ONE (15:00)
[2018-02-28] MEDS ORDERED: IOHEXOL 350 MG/ML 50 ML BTL (for Cath Lab) OTHER ONE (17:38)
[2018-02-28 20:00] VITALS: BP 178/79; PULSE 102; RESP 18; TEMP 97.9; O2SAT 96
[2018-02-28] MEDS: SODIUM CHLORIDE 0.9% FLUSH 10 ML FLUSH IV FLUSH SCH (22:26)
[2018-02-28] MEDS: REMOVE OLD LIDOCAINE PATCH T-DERMAL SCH (22:26)
[2018-03-01] VITALS (7 sets, daily range): BP systolic 154–173; BP diastolic 55–86; PULSE 88–101; RESP 17–20; TEMP 97.6–98.2; O2SAT 92–96
[2018-03-01] MEDS: METHOCARBAMOL 500 MG TAB PO SCH ×3 (00:37→15:16)
[2018-03-01] MEDS: IBUPROFEN 800 MG TAB PO SCH ×4 (00:37→18:11)
[2018-03-01] MEDS: ENOXAPARIN SODIUM 100 MG/ML SYRINGE SQ SCH ×2 (00:44→15:16)
[2018-03-01] MEDS: ENALAPRILAT 1.25 MG/ML VIAL IV PUSH PRN (05:45)
[2018-03-01 07:25] LABS: AUTOMATED NEUTROPHIL # 5.3 TH/MM3 (1.8-7.7); BASOPHIL # 0.1 TH/MM3 (0-0.2); BASOPHIL % 0.8 % (0.0-2.0); EOSINOPHIL # 0.3 TH/MM3 (0-0.4); EOSINOPHIL % 4.2 % (0.0-4.0); HEMATOCRIT 29.6 % (39.0-51.0); HEMOGLOBIN 10.3 GM/DL (13.0-17.0); LYMPH % 12.5 % (9.0-44.0); LYMPHOCYTE # 0.9 TH/MM3 (1.0-4.8); MEAN CELL VOLUME 91.7 FL (80.0-100.0); MEAN CORPUSCULAR HEMOGLOBIN 31.8 PG (27.0-34.0); MEAN CORPUSCULAR HGB CONC 34.7 % (32.0-36.0); MONO % 13.1 % (0.0-8.0); NEUT % 69.4 % (16.0-70.0); PLATELET COUNT 307 TH/MM3 (150-450); RED BLOOD COUNT 3.23 MIL/MM3 (4.50-5.90); RED CELL DISTRIBUTION WIDTH 14.2 % (11.6-17.2); WHITE BLOOD COUNT 7.6 TH/MM3 (4.0-11.0)
[2018-03-01 07:26] LABS: INTERNATIONAL NORMALIZED RATIO 1.9 RATIO; PROTHROMBIN TIME - PATIENT 19.2 SEC (9.8-11.6)
[2018-03-01 07:45] LABS: ALBUMIN 2.2 GM/DL (3.4-5.0); CALCIUM 8.2 MG/DL (8.5-10.1); CREATININE 0.81 MG/DL (0.60-1.30)
[2018-03-01 07:46] LABS: DIRECT BILIRUBIN ADULT 0.5 MG/DL (0.0-0.2)
[2018-03-01 07:49] LABS: CHOLESTEROL/ HDL RATIO 3.53 RATIO; HDL CHOLESTEROL 29.1 MG/DL (40.0-60.0); INDIRECT BILIRUBIN 0.7 MG/DL (0.0-0.8); TOTAL BILIRUBIN ADULT 1.2 MG/DL (0.2-1.0); TOTAL PROTEIN 5.5 GM/DL (6.4-8.2)
[2018-03-01] MEDS ORDERED: amLODIPine BESYLATE 5 MG TAB PO ONE (08:00)
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
[2018-03-01] MEDS ORDERED: SODIUM CHLORID 0.9% 500 ML INJ 500 ML IV ONE (08:15)
[2018-03-01] MEDS ORDERED: POTASSIUM CHLORIDE 20 MEQ CONTROLLED RELEASE TAB PO ONE (08:15)
[2018-03-01] MEDS: MORPHINE SULFATE 4 MG/ML INJ IV PUSH PRN (08:56)
[2018-03-01] MEDS: LIDOCAINE HCL 5% PATCH T-DERMAL SCH (08:57)
[2018-03-01] MEDS: FAMOTIDINE 20 MG TAB PO SCH ×2 (08:57→21:14)
[2018-03-01] MEDS: DOCUSATE SODIUM 50 MG/SENNA 8.6 MG TAB PO SCH ×2 (08:57→21:00)
[2018-03-01] MEDS: POLYETHYLENE GLYCOL 17 GM PKG PO SCH (08:58)
[2018-03-01] MEDS: amLODIPine BESYLATE 5 MG TAB PO SCH (08:58)
[2018-03-01] MEDS: SODIUM CHLORIDE 0.9% FLUSH 10 ML FLUSH IV FLUSH SCH ×2 (08:58→21:15)
[2018-03-01] MEDS: MAGNESIUM HYDROXIDE SUSP 30 ML CUP PO SCH ×2 (08:58→21:00)
[2018-03-01] MEDS: BACITRACIN TOP OINT 15 GM TUBE TOP SCH ×2 (11:56→21:18)
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
[2018-03-01] MEDS ORDERED: ONDANSETRON HCL 4 MG/2 ML VIAL IV PUSH PRN (13:15)
[2018-03-01] MEDS ORDERED: METOCLOPRAMIDE HCL 10 MG TAB PO PRN (13:15)
[2018-03-01] MEDS: WARFARIN SOD 5 MG TAB PO SCH (15:16)
[2018-03-01] MEDS: REMOVE OLD LIDOCAINE PATCH T-DERMAL SCH (21:00)
[2018-03-02] VITALS: BP 168/72; PULSE 84; RESP 18; TEMP 97.4; O2SAT 96
[2018-03-02] MEDS: IBUPROFEN 800 MG TAB PO SCH ×3 (00:30→12:00)
[2018-03-02] MEDS: METHOCARBAMOL 500 MG TAB PO SCH ×3 (00:30→16:00)
[2018-03-02 04:00] VITALS: BP 133/63; PULSE 84; RESP 18; TEMP 97.7; O2SAT 96
[2018-03-02 04:47] LABS: HEMATOCRIT 26.9 % (39.0-51.0); HEMOGLOBIN 9.4 GM/DL (13.0-17.0); MEAN CELL VOLUME 91.6 FL (80.0-100.0); MEAN CORPUSCULAR HEMOGLOBIN 31.9 PG (27.0-34.0); MEAN CORPUSCULAR HGB CONC 34.8 % (32.0-36.0); MEAN PLATELET VOLUME 6.8 FL (7.0-11.0); PLATELET COUNT 270 TH/MM3 (150-450); RED BLOOD COUNT 2.94 MIL/MM3 (4.50-5.90); RED CELL DISTRIBUTION WIDTH 14.2 % (11.6-17.2); WHITE BLOOD COUNT 5.3 TH/MM3 (4.0-11.0)
[2018-03-02 04:51] LABS: INTERNATIONAL NORMALIZED RATIO 2.9 RATIO; PROTHROMBIN TIME - PATIENT 28.9 SEC (9.8-11.6)
[2018-03-02] MEDS: ENOXAPARIN SODIUM 100 MG/ML SYRINGE SQ SCH ×2 (05:39→15:00)
[2018-03-02 07:35] VITALS: BP 162/67; PULSE 88; RESP 17; TEMP 97.8; O2SAT 94
[2018-03-02] MEDS ORDERED: MAGN30S PO (08:15)
[2018-03-02] MEDS ORDERED: IBUP1TAB7 PO (08:15)
[2018-03-02] MEDS ORDERED: COMMODE 3-IN-11 MIS (08:17)
[2018-03-02] MEDS ORDERED: TRANSFER BENCH1 MIS (08:17)
[2018-03-02] MEDS: DOCUSATE SODIUM 50 MG/SENNA 8.6 MG TAB PO SCH (09:00)
[2018-03-02] MEDS: POLYETHYLENE GLYCOL 17 GM PKG PO SCH (09:00)
[2018-03-02] MEDS: MAGNESIUM HYDROXIDE SUSP 30 ML CUP PO SCH (09:00)
[2018-03-02] MEDS: SODIUM CHLORIDE 0.9% FLUSH 10 ML FLUSH IV FLUSH SCH (09:00)
[2018-03-02] MEDS: BACITRACIN TOP OINT 15 GM TUBE TOP SCH (09:00)
[2018-03-02] MEDS: amLODIPine BESYLATE 5 MG TAB PO SCH (09:01)
[2018-03-02] MEDS: FAMOTIDINE 20 MG TAB PO SCH (09:01)
[2018-03-02] MEDS: LIDOCAINE HCL 5% PATCH T-DERMAL SCH (09:06)
[2018-03-02 09:51] VITALS: O2SAT 94
[2018-03-02 12:00] VITALS: BP 146/70; PULSE 92; RESP 18; TEMP 98.2; O2SAT 95
[2018-03-02] MEDS ORDERED: AMLO5 PO (12:29)
[2018-03-02] MEDS ORDERED: LIDO1ADH4 T-DERMAL (12:29)
[2018-03-02] MEDS ORDERED: METH500T3 PO (12:29)
[2018-03-02] MEDS ORDERED: METO10TA PO (12:29)
[2018-03-02] MEDS ORDERED: PERC5TAB12 PO (12:29)
[2018-03-02] MEDS ORDERED: BACI500O9 TOPICAL (13:03)
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
[2018-03-02] MEDS: WARFARIN SOD 5 MG TAB PO SCH (16:33)
== END 2018-03-02 16:50 | disposition home health service (06) | DRG 287 ==
LOC: NEPI 03:21 → NEDA 03:46 → EDBD 03:46 → N03A 04:03 → N05B 02-25 15:13
PROVIDERS: ADMIT Surgery; ATTEND Surgery
PROC: 0HQ0XZZ Repair Scalp Skin, External Approach (ICD-10-PCS; 2018-02-23)
PROC: B2111ZZ Fluoroscopy of Multiple Coronary Arteries using Low Osmolar Contrast (ICD-10-PCS; 2018-02-28)
PROC: B2151ZZ Fluoroscopy of Left Heart using Low Osmolar Contrast (ICD-10-PCS; 2018-02-28)
PROC: 4A023N7 Measurement of Cardiac Sampling and Pressure, Left Heart, Percutaneous Approach (ICD-10-PCS; principal; 2018-02-28 13:30)
DX: S26.91XA Contusion of heart, unspecified with or without hemopericardium, initial encounter (principal); N17.9 Acute kidney failure, unspecified; T79.7XXA Traumatic subcutaneous emphysema, initial encounter; D68.59 Other primary thrombophilia; S27.322A Contusion of lung, bilateral, initial encounter; S22.43XA Multiple fractures of ribs, bilateral, initial encounter for closed fracture; K66.8 Other specified disorders of peritoneum; S01.01XA Laceration without foreign body of scalp, initial encounter; R74.8 Abnormal levels of other serum enzymes; S42.002A Fracture of unspecified part of left clavicle, initial encounter for closed fracture; S06.0X0A Concussion without loss of consciousness, initial encounter; S20.319A Abrasion of unspecified front wall of thorax, initial encounter; S40.811A Abrasion of right upper arm, initial encounter; S40.812A Abrasion of left upper arm, initial encounter; V28.4XXA Motorcycle driver injured in noncollision transport accident in traffic accident, initial encounter; Y92.488 Other paved roadways as the place of occurrence of the external cause; Z86.718 Personal history of other venous thrombosis and embolism; Z79.01 Long term (current) use of anticoagulants; Y90.7 Blood alcohol level of 200-239 mg/100 ml; M25.512 Pain in left shoulder; S42.031A Displaced fracture of lateral end of right clavicle, initial encounter for closed fracture; F10.129 Alcohol abuse with intoxication, unspecified; M62.838 Other muscle spasm; J98.4 Other disorders of lung; I25.10 Atherosclerotic heart disease of native coronary artery without angina pectoris; Z86.711 Personal history of pulmonary embolism; S00.81XA Abrasion of other part of head, initial encounter
CPT/HCPCS: 70450; 71045; 71260; 72125; 72170; 73030; 74177; 80048; 80061; 80076; 80307; 81001; 82550; 82552; 82948; 84484; 85007; 85014; 85018; 85025; 85027; 85610; 85730; 86850; 86900; 86901; 87086; 87641; 90471; 90715; 93005; 93306; 93458; 94150; 94640; 94664; 94667; 94668; 96374; 96375; 99291; C1769; C1893; G0390; J0461; J0690; J1644; J1650; J2250; J2270; J2405; J3010; J7030; J7040; J7120; Q9967